=== PATIENT | male | born 1985 | race Caucasian/White ===

== ENCOUNTER → 2019-11-15 | Outpatient (CLI) | payer BC ==
[~2019-11-15] MED LIST: PERCOCET PO
== END | disposition home or self-care (01) ==
LOC: STAR 08:04
PROVIDERS: ATTEND Urology
DX: Z01.818 Encounter for other preprocedural examination (principal); Z11.59 Encounter for screening for other viral diseases; N20.1 Calculus of ureter
CPT/HCPCS: 36415; 87635

== ENCOUNTER 2019-11-20 07:03 | Day surgery (SDC) | payer BC ==
[~2019-11-20] VITALS: Ht 177.8 cm; Wt 85.3 kg
[2019-11-20] MEDS ORDERED: GLYCOPYRROLATE 0.2MG/1ML, 5ML ONE (07:54)
[2019-11-20] MEDS ORDERED: PROPOFOL 10 MG/ML, 20ML ONE (07:54)
[2019-11-20] MEDS ORDERED: FENTANYL PF 250 MCG/5ML ONE (07:54)
[2019-11-20] MEDS ORDERED: DEXAMETHASONE 4 MG/ML, 1ML ONE (07:54)
[2019-11-20] MEDS ORDERED: LIDOCAINE-MPF 2% ,5ML ONE (07:54)
[2019-11-20] MEDS ORDERED: ROCURONIUM 10MG/ML,5ML ONE (07:54)
[2019-11-20] MEDS ORDERED: MIDAZOLAM 1 MG/ML, 2ML ONE (07:54)
[2019-11-20] MEDS ORDERED: CHLORHEXIDINE 15 ML UDC MM ONE (08:00)
[2019-11-20] MEDS ORDERED: LACTATED RINGERS 1,000 ML IV SCH (08:02)
[2019-11-20] MEDS ORDERED: LIDOCAINE-MPF 1%, 2ML INFIL ONE (08:30)
[2019-11-20] MEDS ORDERED: MEPERIDINE/PF 25MG/0.5ML IVPush PRN (09:00)
[2019-11-20] MEDS ORDERED: OXYcodone 5 MG/5 ML ORAL.SOL UDC PO PRN (09:00)
[2019-11-20] MEDS ORDERED: EPHEDRINE 50 MG/ML, 1ML IVPush PRN (09:00)
[2019-11-20] MEDS ORDERED: LORazepam 2 MG/ML, 1ML IVPush PRN (09:00)
[2019-11-20] MEDS ORDERED: MIDAZOLAM 1 MG/ML, 2ML IV PRN (09:00)
[2019-11-20] MEDS ORDERED: EPHEDRINE 50 MG/ML, 1ML IM PRN (09:00)
[2019-11-20] MEDS ORDERED: ONDANSETRON 2MG/ML, 2ML IVPush PRN (09:00)
[2019-11-20] MEDS ORDERED: ALBUTEROL/IPRATROPIUM 2.5MG/0.5MG, 3 ML NPPB PRN (09:00)
[2019-11-20] MEDS ORDERED: HYDROcodone/APAP 7.5-325MG/15ML UDC PO PRN (09:00)
[2019-11-20] MEDS ORDERED: METHOCARBAMOL 1,000 MG in DEXTROSE 5% 100 ML IV PRN (09:00)
[2019-11-20] MEDS ORDERED: KETOROLAC 30 MG/1 ML IVPush PRN (09:00)
[2019-11-20] MEDS ORDERED: METOCLOPRAMIDE 5 MG/ML, 2ML IVPush PRN (09:00)
[2019-11-20] MEDS ORDERED: LABETALOL 5MG/ML, 20ML IV PRN (09:00)
[2019-11-20] MEDS ORDERED: hydrALAzine 20 MG/ML, 1ML IV PRN (09:00)
[2019-11-20] MEDS ORDERED: HALOPERIDOL 5 MG/ML IV PRN (09:00)
[2019-11-20] MEDS ORDERED: FENTANYL PF 100 MCG/2ML IV PRN (09:00)
[2019-11-20] MEDS ORDERED: HYDROmorphone 1 MG/ML, 1ML INJ IVPush PRN (09:00)
[2019-11-20] MEDS ORDERED: ACETAMINOPHEN 325 MG TABLET PO PRN (09:00)
[2019-11-20] MEDS ORDERED: DIAZEPAM 5 MG/ML, 2ML IVPush PRN (09:00)
[2019-11-20] MEDS ORDERED: DIPHENHYDRAMINE 50 MG/ML, 1ML IVPush PRN (09:00)
[2019-11-20] MEDS ORDERED: CEFAZOLIN PMX 1GM/50ML ONE (09:18)
[2019-11-20] MEDS ORDERED: OPIUM/BELLADONNA SUPP.RECT 16.2-60 MG ONE (09:21)
[2019-11-20] MEDS ORDERED: OMNIPAQUE 350 MG/ML, 50 ML BOTTLE ONE (10:00)
[2019-11-20] MEDS ORDERED: PHENAZOPYRIDINE 200 MG TABLET ONE (11:07)
[2019-11-20] MEDS ORDERED: PHENAZOPYRIDINE 200 MG TABLET PO ONE (11:30)
== END 2019-11-20 12:05 | disposition home or self-care (01) ==
LOC: OUT 07:03
PROVIDERS: ATTEND Urology
DX: N20.1 Calculus of ureter (principal); F17.290 Nicotine dependence, other tobacco product, uncomplicated; Z79.891 Long term (current) use of opiate analgesic; Z82.49 Family history of ischemic heart disease and other diseases of the circulatory system
CPT/HCPCS: 52353; 74420; 82360; 88300; C1769; J0690; J1100; J2250; J2704; J3010; Q9967